=== PATIENT | female | born 1975 | race Hispanic/Latino ===

== ENCOUNTER → 2017-10-21 | Outpatient (CLI) | payer BC | END | disposition home or self-care (01) | LOC: RAH 12:37 | PROVIDERS: ATTEND Nurse Practitioner Family | DX: N93.9 Abnormal uterine and vaginal bleeding, unspecified (principal); R10.2 Pelvic and perineal pain | CPT/HCPCS: 76856 ==

== ENCOUNTER 2022-08-24 21:09 | Emergency (ER) | payer BC ==
[~2022-08-24] VITALS: Ht 162.6 cm; Wt 72.6 kg
[2022-08-24] MEDS ORDERED: 0.9%NACL 1000ML 1,000 ML IV ONE (21:30)
[2022-08-24 21:44] LABS: BASOPHILS % (AUTO) 0.3 % (0.0-5.0); EOSINOPHILS % (AUTO) 0.2 % (0.0-8.0); HEMATOCRIT 38.8 % (36-48); MEAN CORPUSCULAR HEMOGLOBIN 26.9 pg (27.0-33.0); MEAN CORPUSCULAR HGB CONC 33.5 g/dL (32.0-36.0); MEAN CORPUSCULAR VOLUME 80.2 fL (79-99); MONOCYTES % (AUTO) 8.8 % (3.0-13.0); NEUTROPHILS % (AUTO) 78.5 % (40.0-77.0); PLATELET COUNT (AUTO) 403 K/uL (130-400); RED BLOOD CELL COUNT(AUTO) 4.84 MIL/uL (4.00-5.50); RED CELL DISTRIBUTION WIDTH 13.5 % (11.0-15.5); WHITE BLOOD COUNT (AUTO) 9.4 K/uL (4.8-10.8)
[2022-08-24 21:46] LABS: APPEARANCE,URINE CLEAR (CLEAR); BILIRUBIN,URINE NEGATIVE (NEGATIVE); COLOR,URINE YELLOW (YELLOW); GLUCOSE, URINE (UA) NEGATIVE (NEGATIVE); KETONES,URINE 5 mg/dL (NEGATIVE); LEUKOCYTE ESTERASE ,URINE NEGATIVE Leu/uL (NEGATIVE); NITRATE,URINE NEGATIVE (NEGATIVE); OCCULT BLOOD,URINE SMALL (NEGATIVE); PH,URINE 5.5 (5.0-8.0); PROTEIN,URINE 20 mg/dL (NEGATIVE); UROBILINOGEN,URINE 0.2 mg/dL (0.2-1.0)
[2022-08-24 21:50] LABS: HCG,QUALITATIVE URINE NEGATIVE (NEGATIVE)
[2022-08-24 21:52] LABS: BACTERIA,URINE RARE /HPF (None Seen); MUCUS,URINE RARE LPF (None Seen); SQUAMOUS EPITHELIAL CELL,UR RARE /HPF (0-2)
[2022-08-24 21:55] LABS: CREATININE 0.9 mg/dL (0.5-1.5); POTASSIUM 3.3 mmol/L (3.5-5.1)
[2022-08-24 21:59] LABS: ALBUMIN 3.9 g/dL (3.5-5.0); TOTAL PROTEIN, SERUM 7.9 g/dL (6.0-8.3)
[2022-08-24] MEDS ORDERED: MORPHINE 4 MG SYG IVP ONE (22:00)
[2022-08-24] MEDS ORDERED: ONDANSETRON 4MG INJ IVP ONE (22:00)
[2022-08-24] MEDS ORDERED: KETOROLAC 15MG/ML VIAL (15MG/ML) IV ONE (22:00)
[2022-08-24] MEDS ORDERED: FAMOTIDINE 20MG VIAL IV ONE (22:00)
[2022-08-24] MEDS ORDERED: IOHEXOL 350 MG/ML 100ML INFUS..BTL IV ONE (22:27)
[2022-08-24] MEDS ORDERED: 0.9% NACL 500ML IV.SOLN 500 ML IV ONE (22:30)
[2022-08-24] MEDS ORDERED: POTASSIUM BICARB/CIT AC 25 MEQ TABLET.EFF PO ONE (22:30)
[2022-08-24 23:23] VITALS: BP 108/66
[2022-08-24] MEDS ORDERED: ONDA4TAB10 PO (23:37)
[2022-08-24] MEDS ORDERED: ACET-66 PO (23:37)
[2022-08-24] MEDS ORDERED: BACI1CAP6 PO (23:37)
[2022-08-24] MEDS ORDERED: DICY20TA2 PO (23:37)
== END 2022-08-24 23:42 | disposition home or self-care (01) ==
LOC: EDH 21:09
DX: K52.9 Noninfective gastroenteritis and colitis, unspecified (principal); E86.0 Dehydration; Z90.49 Acquired absence of other specified parts of digestive tract
CPT/HCPCS: 74177; 99284; 96374; 96375; 96361; 80053; 83690; 85025; 87804 ×2; 81001; 81025; 36415; J3490; J2405; J2270; J1885; Q9967

== ENCOUNTER → 2023-09-28 | Outpatient (CLI) | payer BC ==
[~2023-09-28] MED LIST: ACET-66 PO; BACI1CAP6 PO; DICY20TA2 PO; GADOTERATE MEGLUMINE 10 MMOL/20 ML VIAL IV ONE; ONDA4TAB10 PO
== END | disposition home or self-care (01) ==
LOC: RAH 12:39
PROVIDERS: ATTEND Nurse Practitioner Family
DX: G44.201 Tension-type headache, unspecified, intractable (principal)
CPT/HCPCS: 70553; A9575